=== PATIENT | female | born 1945 | race Caucasian/White ===

== ENCOUNTER 2023-11-07 12:10 | Outpatient (CLI) | payer OTHER | END 2023-11-07 12:17 | disposition home or self-care (01) | LOC: RAD 12:10 | DX: Z01.811 Encounter for preprocedural respiratory examination (principal) ==

== ENCOUNTER 2023-11-11 12:17 | Outpatient (CLI) | payer OTHER | END 2023-11-11 12:29 | disposition home or self-care (01) | LOC: MRI 12:17 | PROVIDERS: ATTEND Pain Medicine Interventional Pain Medicine | DX: M54.50 Low back pain, unspecified (principal); M53.9 Dorsopathy, unspecified | CPT/HCPCS: 72141; 72148 ==

== ENCOUNTER 2024-08-27 12:09 | Outpatient (CLI) | payer OTHER | END 2024-08-27 12:11 | disposition home or self-care (01) | LOC: MAMO-SONO 12:09 | PROVIDERS: ATTEND Obstetrics & Gynecology | DX: N60.11 Diffuse cystic mastopathy of right breast (principal); N60.12 Diffuse cystic mastopathy of left breast; Z12.31 Encounter for screening mammogram for malignant neoplasm of breast; N95.0 Postmenopausal bleeding; R10.2 Pelvic and perineal pain ==